=== PATIENT | female | born 1955 | race Caucasian/White ===

== ENCOUNTER 2020-11-11 08:32 | Emergency (ER) | payer OTHER, MEDICAID ==
[~2020-11-11] VITALS: Ht 156.2 cm; Wt 80.9 kg
--- NOTE | 2020-11-11 08:48 | NUR ---
PT AMBULATORY TO ROOM FROM TRIAGE, PT CHANGED INTO GOWN. MONITORS IN PLACE. PT C/O SOB, SPO2 SAT 99 ON RA. CALL LIGHT WITHIN REACH.
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
[2020-11-11 09:13] LABS: BASOPHILS % (AUTO) 1 % (0-1); EOSINOPHILS % (AUTO) 1 % (1-7); LYMPHOCYTES % (AUTO) 35 % (22-44); MEAN CORPUSCULAR HEMOGLOBIN 31.4 pg (27.0-34.8); MEAN CORPUSCULAR HGB CONC 33.4 g/dL (32.4-35.8); MEAN PLATELET VOLUME 9.1 fL (7.4-10.4); MONOCYTES % (AUTO) 7 % (2-9); NEUTROPHILS % (AUTO) 56 % (42-75); PLATELET COUNT 261 x10^3/uL (130-400); RED BLOOD COUNT 4.25 x10^6/uL (3.82-5.3); RED CELL DISTRIBUTION WIDTH 13.3 % (9.6-15.2)
[2020-11-11 09:24] LABS: ALANINE AMINOTRANSFERASE 20 U/L (12-78); ALBUMIN 4.1 g/dL (3.4-5.0); ANION GAP 7 mmol/L (5-15); CALCIUM 9.1 mg/dL (8.5-10.1); CHLORIDE 111 mmol/L (98-107); CREATININE 0.79 mg/dL (0.55-1.02)
[2020-11-11 09:29] LABS: ALKALINE PHOSPHATASE 50 U/L (45-117); BILIRUBIN,TOTAL 0.6 mg/dL (0.2-1.0); TOTAL PROTEIN 7.4 g/dL (6.4-8.2); TROPONIN I < 0.015 ng/mL (0.000-0.045)
[2020-11-11] MEDS ORDERED: LORazepam 1MG TABLET PO ONE (09:30)
[2020-11-11 09:31] LABS: MD NO
[2020-11-11] MEDS ORDERED: LORazepam 1MG TABLET ONE (09:39)
--- NOTE | 2020-11-11 09:46 | NUR ---
TASK RN: PT MEDICATED SEE AUG. VSS. NADN. RES REG/UNLABORED. SIDERAIL UPX2. CALL LIGHT WITHIN REACH. BLANKET PROVIDED REQUESTED.
[2020-11-11 10:21] VITALS: BP 137/75
--- NOTE | 2020-11-11 10:22 | NUR ---
PT UP TO BATHROOM WITH STEADY GAIT. PT A&O, RESPS EVEN AND UNLABORED, VSS, ALL MONITORS ATTACHED, NSR, NADN. GALILEO MALDONADO AT BEDSIDE TO DISCUSS POC.
--- NOTE | 2020-11-11 10:28 | NUR ---
ORDERS RECEIEVED FOR UA, PT EDUCATED AND SUPPLIES AT BEDSIDE
[2020-11-11 10:41] LABS: MICROSCOPIC NOT IND
--- NOTE | 2020-11-11 11:06 | NUR ---
PT A&O, RESPS EVEN AND UNLABORED, VSS, NADN. PT EDUCATED ON DISCHARGE INSTRUCTIONS, PRESCRIPTION, FOLLOW-UP, AND RETURN CRITERIA, VERBALIZED UNDERSTANDING. PT AMBULATORY TO DISCHARGE DESK WITH STEADY GAIT.
== END 2020-11-11 11:09 | disposition home or self-care (01) ==
LOC: ED 09:57
DX: S39.012A Strain of muscle, fascia and tendon of lower back, initial encounter (principal); J44.1 Chronic obstructive pulmonary disease with (acute) exacerbation; J40 Bronchitis, not specified as acute or chronic
CPT/HCPCS: 36415; 71045; 80053; 81003; 84443; 84484; 85025; 93005; 99285

== ENCOUNTER 2020-12-14 08:46 | Emergency (ER) | payer OTHER, MEDICAID ==
[~2020-12-14] VITALS: Ht 154.9 cm; Wt 80.1 kg
--- NOTE | 2020-12-14 09:30 | NUR ---
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
[2020-12-14] MEDS ORDERED: HYDROcodone/APAP 5/325 TABLET ONE (10:38)
[2020-12-14 10:40] VITALS: BP 154/76
[2020-12-14] MEDS ORDERED: HYDROcodone/APAP 5/325 TABLET PO ONE (11:00)
== END 2020-12-14 11:06 | disposition home or self-care (01) ==
LOC: ED 11:00
DX: H92.02 Otalgia, left ear (principal); R51.9 Headache, unspecified
CPT/HCPCS: 99283